=== PATIENT | female | born 1945 | race Caucasian/White ===

== ENCOUNTER → 2020-05-15 | Day surgery (SDC) | payer MEDICARE, SELFPAY ==
[~2020-05-15] MED LIST: AMLODIPINE BESYL5 MG PO; ATENOLOL25 MG PO; CARAFATE1 GM PO; CLOPIDOGREL75 MG PO; COLACE100 MG PO; CYANOCOBAL1000 MCG/1 INJ; EUTHYROX50 MCG PO; HYDRALAZINE HCL25 MG PO; HYDROCODON-ACE1 EAC4 PO; LEVOTHYROXINE50 MCG PO; MAGNESIUM400 M2 PO; NITROSTAT0.4 MG SL; NORVASC5 MG PO; PHENERGAN 25 MG25 M1 PO; PLAVIX75 MG PO; PLETAL 100 MG100 MG PO; POTASSIUM CHLO20 ME1 PO; POTASSIUM CHLO20 MEQ PO; PROTONIX 40 MG40 M1 PO; PROTONIX40 MG PO; SUPER CALCIUM600 MG PO; TENORMIN 25 MG25 MG PO; VITAMIN D350 MC3 PO; ZANAFLEX4 M1 PO
== END | disposition home or self-care (01) ==
LOC: OR 06:43
PROVIDERS: Surgery
PROC: 0DB78ZX Excision of Stomach, Pylorus, Via Natural or Artificial Opening Endoscopic, Diagnostic (ICD-10-PCS; 2020-05-15)
PROC: 0DB58ZX Excision of Esophagus, Via Natural or Artificial Opening Endoscopic, Diagnostic (ICD-10-PCS; principal; 2020-05-15 09:00)
DX: K21.00 Gastro-esophageal reflux disease with esophagitis, without bleeding (principal); K44.9 Diaphragmatic hernia without obstruction or gangrene; K29.70 Gastritis, unspecified, without bleeding; K31.9 Disease of stomach and duodenum, unspecified; E78.5 Hyperlipidemia, unspecified; I10 Essential (primary) hypertension; I48.91 Unspecified atrial fibrillation; I73.9 Peripheral vascular disease, unspecified; Z87.891 Personal history of nicotine dependence; J44.9 Chronic obstructive pulmonary disease, unspecified; E03.9 Hypothyroidism, unspecified; Z88.2 Allergy status to sulfonamides; Z88.8 Allergy status to other drugs, medicaments and biological substances; Z79.82 Long term (current) use of aspirin; Z79.899 Other long term (current) drug therapy; Z20.822 Contact with and (suspected) exposure to COVID-19
CPT/HCPCS: J2704; J7120

== ENCOUNTER → 2020-07-06 | Outpatient (CLI) | payer MEDICARE, OTHER ==
[2020-07-06 11:39] LABS: HEMOGLOBIN 13.1 gm/dl (12.3-15.3); RED BLOOD COUNT 4.39 M/UL (4.00-5.10); WHITE BLOOD COUNT 5.8 K/UL (4.5-11.0)
== END ==
LOC: OPSV2 10:00
PROVIDERS: Anesthesiology
DX: Z01.818 Encounter for other preprocedural examination (principal); R94.31 Abnormal electrocardiogram [ECG] [EKG]; Z20.822 Contact with and (suspected) exposure to COVID-19
CPT/HCPCS: 36415; 80048; 85025; 93005; U0003

== ENCOUNTER 2020-07-10 06:47 | Inpatient (IN) | payer MEDICARE, SELFPAY ==
[~2020-07-10] VITALS: Ht 162.6 cm; Wt 55.8 kg
[~2020-07-10 06:47] MED LIST changes: -COLACE100 MG PO; -HYDROCODON-ACE1 EAC4 PO
[2020-07-11 05:25] LABS: RED BLOOD COUNT 3.4 M/UL (4.00-5.10); WHITE BLOOD COUNT 13.6 K/UL (4.5-11.0)
[2020-07-11 05:52] LABS: BUN/CREATININE RATIO 11 (0-10)
[2020-07-11 05:55] LABS: HEMOGLOBIN 10.3 gm/dl (12.3-15.3)
[2020-07-12 03:42] LABS: HEMOGLOBIN 9.4 gm/dl (12.3-15.3); RED BLOOD COUNT 3.11 M/UL (4.00-5.10); WHITE BLOOD COUNT 13.2 K/UL (4.5-11.0)
[2020-07-13 03:15] LABS: HEMOGLOBIN 9.4 gm/dl (12.3-15.3); RED BLOOD COUNT 3.1 M/UL (4.00-5.10); WHITE BLOOD COUNT 12.3 K/UL (4.5-11.0)
[2020-07-13 03:53] LABS: BUN/CREATININE RATIO 11 (0-10)
[2020-07-14 06:16] LABS: HEMOGLOBIN 8.8 gm/dl (12.3-15.3); RED BLOOD COUNT 2.96 M/UL (4.00-5.10)
[2020-07-14 06:18] LABS: WHITE BLOOD COUNT 8.6 K/UL (4.5-11.0)
[2020-07-14 06:31] LABS: BUN/CREATININE RATIO 8 (0-10)
[2020-07-15 06:50] LABS: WHITE BLOOD COUNT 10.4 K/UL (4.5-11.0)
[2020-07-15 06:54] LABS: HEMOGLOBIN 11.1 gm/dl (12.3-15.3); RED BLOOD COUNT 3.82 M/UL (4.00-5.10)
[2020-07-15 07:25] LABS: BUN/CREATININE RATIO 14 (0-10)
[2020-07-16 07:03] LABS: BUN/CREATININE RATIO 14 (0-10)
[2020-07-16 07:16] LABS: WHITE BLOOD COUNT 12.8 K/UL (4.5-11.0)
[2020-07-16 07:17] LABS: HEMOGLOBIN 8.2 gm/dl (12.3-15.3); RED BLOOD COUNT 2.7 M/UL (4.00-5.10)
[2020-07-21] MEDS ORDERED: COLACE100 MG PO (11:19)
[2020-07-21] MEDS ORDERED: HYDROCODON-ACE1 EAC4 PO (11:19)
== END 2020-07-22 14:59 | disposition home or self-care (01) | DRG 329 ==
LOC: OR 06:47 → MED SURG 4 12:15 → OR 12:16 → MED SURG 4 12:16
PROVIDERS: Internal Medicine; ADMIT Surgery
PROC: 0DTF0ZZ Resection of Right Large Intestine, Open Approach (ICD-10-PCS; principal; 2020-07-10 08:15)
PROC: B24BZZ4 Ultrasonography of Heart with Aorta, Transesophageal (ICD-10-PCS; 2020-07-14)
DX: K63.5 Polyp of colon (principal); J18.9 Pneumonia, unspecified organism; D62 Acute posthemorrhagic anemia; K56.7 Ileus, unspecified; K63.89 Other specified diseases of intestine; K21.9 Gastro-esophageal reflux disease without esophagitis; E03.9 Hypothyroidism, unspecified; I48.0 Paroxysmal atrial fibrillation; E78.5 Hyperlipidemia, unspecified; R06.89 Other abnormalities of breathing; Z20.822 Contact with and (suspected) exposure to COVID-19; E55.9 Vitamin D deficiency, unspecified; I12.9 Hypertensive chronic kidney disease with stage 1 through stage 4 chronic kidney disease, or unspecified chronic kidney disease; N18.30 Chronic kidney disease, stage 3 unspecified; I73.9 Peripheral vascular disease, unspecified; E21.3 Hyperparathyroidism, unspecified; Z95.5 Presence of coronary angioplasty implant and graft; Z90.710 Acquired absence of both cervix and uterus; Z87.891 Personal history of nicotine dependence; Z80.9 Family history of malignant neoplasm, unspecified; Z83.3 Family history of diabetes mellitus; Z82.49 Family history of ischemic heart disease and other diseases of the circulatory system; Z82.3 Family history of stroke; Z88.2 Allergy status to sulfonamides; Z79.01 Long term (current) use of anticoagulants
CPT/HCPCS: ECHO; 36415; 80048; 82550; 82553; 83735; 84484; 85027; 93005; 93306; 97110; 97116; 97116-GP-CQ; 97162; 97165; 97530; 97530-GP-CQ; 97535; C9113; J0690; J0692; J1160; J1170; J1650; J2001; J2270; J2370; J2405; J2550; J2704; J2710; J3010; J3475; J3480; J7120; Q9963; Q9965